=== PATIENT | female | born 1990 | race African-American/Black ===

== ENCOUNTER 2017-10-07 07:06 | Emergency (ER) | payer MEDICAID ==
[2017-10-07 08:28] LABS: HCG URINE NEGATIVE (NEGATIVE)
[2017-10-07 08:36] LABS: APPEARANCE CLEAR (CLEAR); BILIRUBIN NEGATIVE (NEGATIVE); COLOR YELLOW (YELLOW); GLUCOSE NEGATIVE (NEGATIVE); KETONE NEGATIVE (NEGATIVE); NITRITE NEGATIVE (NEGATIVE); PROTEIN TRACE mg/dL (NEGATIVE); SPECIFIC GRAVITY 1.015 (1.005-1.020); UROBILINOGEN NORMAL (NORMAL)
[2017-10-07 08:38] LABS: BACTERIA MODERATE /hpf (NONE SEEN); EPITHELIAL CELLS 0-5 /hpf (0-5); RED CELLS - URINE 0-5 /hpf (0-5)
== END 2017-10-07 08:45 | disposition home or self-care (01) ==
LOC: D.ER 07:06
PROVIDERS: Emergency Medicine
DX: G44.209 Tension-type headache, unspecified, not intractable (principal); N39.0 Urinary tract infection, site not specified; A59.01 Trichomonal vulvovaginitis; F17.200 Nicotine dependence, unspecified, uncomplicated

== ENCOUNTER 2019-01-01 16:36 | Emergency (ER) | payer SELFPAY ==
[~2019-01-01] VITALS: Ht 160 cm; Wt 111.4 kg
[2019-01-01 16:44] VITALS: Ht 160 cm; Wt 111.4 kg
[2019-01-01 17:53] LABS: ALBUMIN 3.9 g/dL (3.4-5.0); ALKALINE PHOSPHATASE 83 U/L (46-116); ALT (SGPT) 51 U/L (10-68); BILIRUBIN - TOTAL 0.27 mg/dL (0.2-1.3); CALC OSMOLALITY 279 mosm/kg (275-300); CALCIUM 9.9 mg/dL (8.5-10.1); CARBON DIOXIDE 23.2 mmol/L (21.0-32.0); CHLORIDE - SERUM 107 mmol/L (98-107); CREATININE - SERUM 0.8 mg/dL (0.6-1.3); GLUCOSE 86 mg/dL (74-106); POTASSIUM - SERUM 4.2 mmol/L (3.5-5.1); PROTEIN - SERUM 7.7 g/dL (6.4-8.2); SODIUM 141 mmol/L (136-145); UREA NITROGEN 12 mg/dL (7-18); eGFR NON AFRICAN AMERICAN > 90 mL/min (90-120)
[2019-01-01 17:56] LABS: AMYLASE - SERUM 57 U/L (25-115); LIPASE 112 U/L (73-393)
[2019-01-01 17:58] LABS: TROPONIN-I < 0.017 ng/mL (0.000-0.060)
[2019-01-01 18:02] LABS: HEMATOCRIT 38.8 % (36.0-48.0); HEMOGLOBIN 13.1 g/dL (12-16); MCH 27.1 pg (26.0-34.0); MCHC 33.8 g/dL (31.0-37.0); MCV 80.2 fL (80.0-100.0); MEAN PLATELET VOLUME 9.9 fL (7.4-10.4); PLATELET COUNT 264 10x3/uL (130-400); RBC 4.84 10x6/uL (4.00-5.40); RDW 14.4 % (11.5-14.5); WBC 9.6 10x3/uL (4.8-10.8)
[2019-01-01 18:05] LABS: APPEARANCE CLEAR (CLEAR); BILIRUBIN NEGATIVE (NEGATIVE); COLOR STRAW (YELLOW); GLUCOSE NEGATIVE (NEGATIVE); KETONE NEGATIVE (NEGATIVE); NITRITE NEGATIVE (NEGATIVE); PROTEIN NEGATIVE (NEGATIVE); SPECIFIC GRAVITY 1.025 (1.005-1.020); UROBILINOGEN NORMAL (NORMAL)
[2019-01-01] MEDS ORDERED: ZOFRAN8 MG PO (18:20)
[2019-01-01 18:39] LABS: EOSINOPHILS 1 % (0-7); LYMPHOCYTES 19 % (15-50); MONOCYTES 1 % (2-11); NEUTROPHILS 74 % (40-80); PLATELET ESTIMATE NORMAL
[2019-01-01 19:04] VITALS: BP 141/75
== END 2019-01-01 18:45 | disposition home or self-care (01) ==
LOC: D.ER 16:36
PROVIDERS: Family Medicine
DX: K52.9 Noninfective gastroenteritis and colitis, unspecified (principal); F17.200 Nicotine dependence, unspecified, uncomplicated; K21.9 Gastro-esophageal reflux disease without esophagitis